=== PATIENT | female | born 1960 | race Caucasian/White ===

== ENCOUNTER → 2016-12-28 14:27 | Outpatient (CLI) | payer MEDICAID | END | disposition home or self-care (01) | LOC: D.MRI 12:00 | DX: M25.561 Pain in right knee (principal) ==

== ENCOUNTER 2017-01-05 06:16 | Day surgery (SDC) | payer MEDICAID ==
[2017-01-04 16:05] LABS: HEMATOCRIT 42.4 % (36.0-48.0); HEMOGLOBIN 13.5 g/dL (12-16); MCH 28.6 pg (26.0-34.0); MCHC 31.8 g/dL (31.0-37.0); MCV 89.8 fL (80.0-100.0); MEAN PLATELET VOLUME 11.3 fL (7.4-10.4); RBC 4.72 10x6/uL (4.00-5.40); RDW 13.9 % (11.5-14.5); WBC 8.2 10x3/uL (4.8-10.8)
[2017-01-04 16:13] LABS: ANION GAP 12.1 mmol/L (8-16); CALCIUM 9.3 mg/dL (8.5-10.1); CARBON DIOXIDE 30.1 mmol/L (21.0-32.0); CREATININE - SERUM 0.9 mg/dL (0.6-1.3); POTASSIUM - SERUM 4.2 mmol/L (3.5-5.1)
[2017-01-05] MEDS ORDERED: PRINIVIL20 MG PO (09:02)
[2017-01-05] MEDS ORDERED: ZOCOR20 MG PO (09:02)
[2017-01-05] MEDS ORDERED: TRESIBA FL100 UNIT/1 (09:03)
[2017-01-05] MEDS ORDERED: ZOLOFT50 MG PO (09:03)
[2017-01-05] MEDS ORDERED: NOVOLIN R100 U/ML SQ (09:04)
[2017-01-05] MEDS ORDERED: TOPROL XL50 MG PO (09:05)
[2017-01-05] MEDS ORDERED: KAZANO 12.5-501 EACH PO (09:05)
[2017-01-05] MEDS ORDERED: DEXILANT60 MG PO (09:05)
[2017-01-05] MEDS ORDERED: PROVENTIL HFA6.7 GM INH (09:06)
[2017-01-05] MEDS ORDERED: HYDROCODONE-APA1 TAB PO (11:50)
== END 2017-01-05 13:10 | disposition home or self-care (01) ==
LOC: D.OPS 06:16
PROVIDERS: Anesthesiology
DX: S83.231A Complex tear of medial meniscus, current injury, right knee, initial encounter (principal); S83.281A Other tear of lateral meniscus, current injury, right knee, initial encounter; M94.261 Chondromalacia, right knee